=== PATIENT | female | born 1975 | race Caucasian/White ===

== ENCOUNTER → 2016-07-13 | Outpatient (CLI) | payer MEDICAID | LOC: FIMAGING 09:42 | PROVIDERS: ATTEND Obstetrics & Gynecology | DX: O09.522 Supervision of elderly multigravida, second trimester (principal); O99.212 Obesity complicating pregnancy, second trimester; O99.512 Diseases of the respiratory system complicating pregnancy, second trimester; Z3A.20 20 weeks gestation of pregnancy ==

== ENCOUNTER → 2016-08-02 | Outpatient (CLI) | payer MEDICAID | LOC: FIMAGING 17:06 | PROVIDERS: ATTEND Midwife | DX: M79.651 Pain in right thigh (principal); Z3A.23 23 weeks gestation of pregnancy; Z83.2 Family history of diseases of the blood and blood-forming organs and certain disorders involving the immune mechanism ==